=== PATIENT | female | born 1995 | race American Indian/Alaskan Native ===

== ENCOUNTER 2017-06-13 17:24 | Emergency (ER) | payer OTHER ==
[~2017-06-13] VITALS: Ht 167.6 cm; Wt 77.1 kg
[~2017-06-13 17:24] MED LIST: NAPROXEN500 MG PO
[2017-06-13] MEDS ORDERED: NORCO 5-325 TA1 EACH PO (18:14)
[2017-06-13] MEDS ORDERED: AUGMENTIN 875-1 EACH PO (18:14)
== END 2017-06-13 18:45 | disposition home or self-care (01) ==
LOC: ED 17:24
DX: S80.211A Abrasion, right knee, initial encounter (principal); F17.200 Nicotine dependence, unspecified, uncomplicated; W01.198A Fall on same level from slipping, tripping and stumbling with subsequent striking against other object, initial encounter
CPT/HCPCS: 90471; 90714; 99283

== ENCOUNTER 2022-08-01 12:12 | Emergency (ER) | payer OTHER ==
[~2022-08-01] VITALS: Ht 167.6 cm; Wt 81.7 kg
[~2022-08-01 12:12] MED LIST changes: +AUGMENTIN 875-1 EACH PO; +NORCO 5-325 TA1 EACH PO
[2022-08-01] MEDS ORDERED: ZOLOFT100 MG PO (12:29)
[2022-08-01] MEDS ORDERED: WELLBUTRIN SR100 MG PO (12:29)
[2022-08-01] MEDS ORDERED: ZYRTEC10 M3 PO (12:30)
[2022-08-01] MEDS ORDERED: 24 HOUR ALLER15.8 ML NS (12:30)
== END 2022-08-01 13:45 | disposition home or self-care (01) ==
LOC: ED 12:12
DX: S67.22XA Crushing injury of left hand, initial encounter (principal); S67.193A Crushing injury of left middle finger, initial encounter; S61.213A Laceration without foreign body of left middle finger without damage to nail, initial encounter; F43.10 Post-traumatic stress disorder, unspecified; W23.1XXA Caught, crushed, jammed, or pinched between stationary objects, initial encounter; F17.200 Nicotine dependence, unspecified, uncomplicated; Z79.899 Other long term (current) drug therapy
CPT/HCPCS: 12001; 73130; 99283-25